=== PATIENT | male | born 1970 | race Two or more races ===

== ENCOUNTER 2016-09-09 07:35 | Emergency (ER) | payer OTHER ==
--- NOTE | 2016-09-09 07:42 | UCPHY ---
H & P Patient Type: New Time Seen by Provider: 09/09/16 07:41 HPI/ROS: CHIEF COMPLAINT: Right ear pain HISTORY OF PRESENT ILLNESS: This is a healthy 45-year-old male with a one-week history of a head cold. He continues with some nasal congestion. He has not had sinus drainage, sore throat, or cough. No fever with this illness. Last night he developed right ear pressure the developed and pain. In the early hours of the morning he woke with drainage from the right ear. He has continued with drainage and states that his hearing is muffled on that side. He has taken ibuprofen and used a heating pad. During the past week he was using his Neti pot and taking Sudafed. He had recurrent bouts of otitis media as a child but has had none as an adult. He has not had flu vaccination this year. He denies headache, facial numbness or swelling, vomiting, diarrhea, abdominal pain. REVIEW OF SYSTEMS: A ten point review of systems was performed and is negative with the exception of the items mentioned in the HPI. Source: Patient Exam Limitations: No limitations - Medical/Surgical History Other PMH: Negative. 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 He is and has 1 daughter. - Physical Exam Exam: General Appearance: Alert. Vital signs reviewed. Blood pressure 146/96. Afebrile. Eyes: Pupils equal and round, no conjunctival injection, no discharge. Anicteric. ENT, Mouth: Left tympanic membrane obscured by cerumen. Right auditory canal is filled with debris, unable to visualize tympanic membrane. Pinna appears normal. Mucous membranes are moist, no oropharyngeal erythema or edema. Dentition in good repair. No sinus tenderness. Neck: No lymphadenopathy, supple. Respiratory: Lungs are clear to auscultation; no wheezes, rales, or rhonchi. Cardiovascular: Regular rate and rhythm; no murmur, rub, or gallop. Skin: Warm and dry, no rashes on exposed skin, normal color. Neurological: Alert and oriented. Moving all four extremities easily and equally. Psychiatric: Normal affect. Constitutional: Initial Vital Signs Temperature (C) 37.2 C 09/09/16 07:47 Heart Rate 68 09/09/16 07:47 Respiratory Rate 18 09/09/16 07:47 Blood Pressure 146/96 H 09/09/16 07:47 O2 Sat (%) 97 09/09/16 07:47 O2 Delivery Mode Room Air Allergies/Adverse Reactions: No Known Allergies Allergy (Unverified 09/09/16 07:46) Home Medications: Medication Instructions Recorded Amoxicillin 500 mg PO TID 7 Days 09/09/16 Medical Decision Making ED Course/Re-evaluation: Ear wick placed in the right external auditory canal. I am assuming tympanic membrane perforation, given the drainage and the relief of pain when the drainage began. Amoxicillin is being prescribed. He will continue with ibuprofen for pain relief. Departure - Departure Disposition: Home, Routine, Self-Care Clinical Impression: Otitis media Qualifiers: Otitis media type: suppurative Laterality: right Chronicity: acute Recurrence: not specified as recurrent Spontaneous tympanic membrane rupture: with spontaneous rupture Qualifier Code: (H66.011) Acute suppurative otitis media with spontaneous rupture of ear drum, right ear Condition: Good Instructions: Otitis Media (ED) Additional Instructions: Continue with ibuprofen 400 mg to 600 mg every 6-8 hours for pain and fever control. Take this with food. There is an ear wick in your right ear. It will probably fall out on its own but if not he can be removed very gently with a tweezers. It just helps to absorb some of the drainage. Complete the antibiotics. I suspect that your hearing will gradually improve. You need to follow up with your primary care physician when the antibiotics are finished. If you are worse in any way you should be re-evaluated. Referrals: Chad García MD [Primary Care Provider] - As per Instructions Prescriptions: Amoxicillin 500 mg PO TID 7 Days - PQRS PQRS Measurement: Does not apply.
[2016-09-09 07:48] VITALS: BP 146/96; PULSE 68; RESP 18; TEMP 99; O2SAT 97
== END 2016-09-09 08:21 | disposition home or self-care (01) ==
LOC: CED 07:35
DX: H66.011 Acute suppurative otitis media with spontaneous rupture of ear drum, right ear (principal); R09.81 Nasal congestion
CPT/HCPCS: 99204-PO; G0463-PO